=== PATIENT | male | born 1950 | race Caucasian/White ===

== ENCOUNTER 2021-12-08 22:10 | Inpatient (IN) | payer MEDICARE, BC ==
[~2021-12-08] VITALS: Ht 172.7 cm; Wt 75.1 kg
[2021-12-09] VITALS (8 sets, daily range): BP systolic 84–122; BP diastolic 41–59
[2021-12-09] MEDS ORDERED: magnesium 4gm in 100ml NS 100 ML IV PRN (01:00)
[2021-12-09] MEDS ORDERED: magnesium 2GM in 50ml NS 50 ML IV PRN (01:00)
[2021-12-09] MEDS ORDERED: magnesium Cl slow-release 64mg tablet PO PRN (01:00)
[2021-12-09] MEDS ORDERED: ondansetron 4mg rapidly disintigrating tab PO PRN (01:00)
[2021-12-09] MEDS ORDERED: mag hydrox/Alum hydrox/simeth 30ml oral suspension PO PRN (01:00)
[2021-12-09] MEDS ORDERED: ondansetron/PF 4mg/2ml inj IV PRN (01:00)
[2021-12-09] MEDS ORDERED: magnesium hydroxide 30ml (MOM) UD suspension PO PRN (01:00)
[2021-12-09] MEDS ORDERED: POTASSIUM BICARB 20meq eff tab 20 MEQ TABLET.EFF PO PRN ×2 (01:00)
[2021-12-09] MEDS ORDERED: potassium CL 10mEq/100ml bag 100 ML IV PRN (01:00)
[2021-12-09] MEDS: normal saline 1000ml 1,000 ML IV SCH ×2 (01:36→05:50)
[2021-12-09] MEDS ORDERED: NOVLG SQ (01:47)
[2021-12-09] MEDS ORDERED: AMYL1CAP57 PO (01:47)
[2021-12-09] MEDS ORDERED: SPIR25TA5 PO (01:47)
[2021-12-09] MEDS ORDERED: FURO40TA4 PO (01:47)
[2021-12-09] MEDS ORDERED: [UNRECOGNIZED DRUG - CODE] PO (01:47)
[2021-12-09] MEDS ORDERED: CLON0.2T PO (01:47)
[2021-12-09] MEDS ORDERED: INSU100V12 SQ (01:47)
[2021-12-09] MEDS ORDERED: DIPH-186 PO (01:47)
[2021-12-09] MEDS ORDERED: METO-292 PO (01:47)
[2021-12-09] MEDS ORDERED: APIX2.5T PO (01:47)
[2021-12-09] MEDS ORDERED: TRAM50TA2 PO (01:47)
[2021-12-09] MEDS ORDERED: NEBI20TA2 PO (01:47)
[2021-12-09] MEDS ORDERED: lactulose 20gm/30ml cup PO SCH (02:00)
[2021-12-09 02:31] LABS: CLARITY,URINE CLEAR (Clear); COLOR,URINE YELLOW (Yellow); GLUCOSE, URINE 250 mg/dl (Neg); KETONES,URINE NEGATIVE (Neg); LEUKOCYTE ESTERASE ,URINE NEGATIVE (Neg); NITRITES, URINE NEGATIVE (Neg); OCCULT BLOOD,URINE SMALL (Neg); PH,URINE 5.5 (4.8-8.0); PROTEIN,URINE TRACE mg/dl (Neg); UROBILINOGEN,URINE 0.2 E.U/dL (0.2-1.0)
[2021-12-09 02:33] LABS: BASOPHILS # (AUTO) 0.1 X10'3 (0-0.2); BASOPHILS % (AUTO) 1.3 % (0-1); EOSINOPHILS # (AUTO) 0.1 X10'3 (0-0.9); EOSINOPHILS % (AUTO) 1.1 % (0-6); HEMOGLOBIN 7.1 g/dl (14.0-17.9); LYMPHOCYTES # (AUTO) 0.5 X10'3 (1.1-4.8); LYMPHOCYTES % (AUTO) 6.5 % (21-51); MEAN CORPUSCULAR HEMOGLOBIN 30.4 PG (27.0-31.0); MEAN CORPUSCULAR HGB CONC 32.5 g/dL (33.0-36.5); MEAN CORPUSCULAR VOLUME 93.7 FL (78-98); MEAN PLATELET VOLUME 9.8 FL (7.4-10.4); MONOCYTES # (AUTO) 0.4 X10'3 (0-0.9); MONOCYTES % (AUTO) 5.3 % (2-12); NEUTROPHILS # (AUTO) 6.8 X10'3 (1.8-7.7); NEUTROPHILS % (AUTO) 85.8 % (42-75); PLATELET COUNT 115 X10'3 (140-440); RED BLOOD COUNT 2.34 X10'6 (4.70-6.10); RED CELL DISTRIBUTION WIDTH 17.8 % (11.5-14.5); WHITE BLOOD COUNT 7.9 X10'3 (4.5-11.0)
[2021-12-09 02:42] LABS: UA COLLECTION TYPE FOLEY CATH
[2021-12-09 02:43] LABS: BACTERIA,URINE NONE SEEN /HPF (Neg); RBC,URINE 0-2 /HPF (0-2); SQUAMOUS EPITHELIAL CELL,UR FEW /LPF (FEW); WBC,URINE 0-4 /HPF (0-4)
[2021-12-09 02:55] LABS: ALANINE AMINOTRANSFERASE 59 U/L (12-78); ALBUMIN/GLOBULIN RATIO 0.5 (1.1-1.5); ALKALINE PHOSPHATASE 405 IU/L (46-116); ANION GAP 16 (8-16); ASPARTATE AMINO TRANSFERASE 20 U/L (10-37); BILIRUBIN,TOTAL 0.7 MG/DL (0.1-1.0); BLOOD UREA NITROGEN 82 MG/DL (7-18); BUN/CREATININE RATIO 13.7 (5.4-32.0); CALCIUM 7.8 MG/DL (8.5-10.1); CHLORIDE 103 MMOL/L (99-107); GLUCOSE 326 MG/DL (70-104); MAGNESIUM 1.6 MG/DL (1.5-2.4); PHOSPHORUS 7.2 MG/DL (2.3-4.5); POTASSIUM 5.5 MMOL/L (3.5-5.1); SODIUM 133 MMOL/L (135-145); TOTAL PROTEIN 5.7 G/DL (6.4-8.2); eGFR 9 ML/MIN
[2021-12-09 03:02] LABS: APTT 35 SECONDS (22-32)
[2021-12-09] MEDS ORDERED: Lactulose Enema **for rectal use only RC PRN ×2 (05:25)
[2021-12-09] MEDS ORDERED: MESSAGE TO PHARMACY PO ONE (06:25)
[2021-12-09] MEDS ORDERED: DEXTROSE 15 GM of carb/4 tabs (each vial/BOTTLE has 4 tablets) PO PRN ×2 (06:25)
[2021-12-09] MEDS ORDERED: dextrose 50%-water 50ml dispensing syringe IV PRN ×2 (06:25)
[2021-12-09] MEDS ORDERED: glucagon, human recombinant 1mg kit SUBCUT PRN (06:25)
[2021-12-09] MEDS: sodium bicarbonate (8.4%) inj. 150 MEQ in sodium chloride 0.45% 1,000 ML IV SCH ×3 (06:37→21:57)
[2021-12-09 07:36] LABS: HEMOGLOBIN A1C 9.4 % (4.5-6.2)
[2021-12-09] MEDS ORDERED: K and/or MAG REPLACEMENT MC SCH (08:00)
[2021-12-09] MEDS: LIPASE/PROTEASE/AMYLASE 10,500 units CAPSULE.DR PO SCH ×3 (08:00→19:00)
[2021-12-09] MEDS: docusate sod 100mg capsule PO SCH ×2 (08:00→20:00)
[2021-12-09] MEDS: rifaximin 550mg tablet PO SCH ×2 (08:00→20:00)
[2021-12-09] MEDS ORDERED: heparin, porcine 5000 units/ml vial SQ SCH (08:00)
[2021-12-09] MEDS: cloNIDine 0.1 mg tablet PO SCH ×3 (08:58→21:00)
[2021-12-09] MEDS: apixaban 2.5mg tablet PO SCH ×2 (08:58→20:00)
[2021-12-09] MEDS: metoprolol tartrate 50mg tablet PO SCH ×2 (08:58→20:00)
[2021-12-09 09:51] LABS: BASOPHILS # (AUTO) 0.1 X10'3 (0-0.2); BASOPHILS % (AUTO) 1.2 % (0-1); EOSINOPHILS # (AUTO) 0.2 X10'3 (0-0.9); HEMATOCRIT 22.9 % (42.0-52.0); HEMOGLOBIN 7.4 g/dl (14.0-17.9); LYMPHOCYTES # (AUTO) 0.5 X10'3 (1.1-4.8); LYMPHOCYTES % (AUTO) 5.8 % (21-51); MEAN CORPUSCULAR HEMOGLOBIN 30.3 PG (27.0-31.0); MEAN CORPUSCULAR HGB CONC 32.3 g/dL (33.0-36.5); MEAN PLATELET VOLUME 9.8 FL (7.4-10.4); MONOCYTES # (AUTO) 0.5 X10'3 (0-0.9); MONOCYTES % (AUTO) 6.3 % (2-12); NEUTROPHILS # (AUTO) 7.1 X10'3 (1.8-7.7); NEUTROPHILS % (AUTO) 84.7 % (42-75); PLATELET COUNT 119 X10'3 (140-440); RED BLOOD COUNT 2.43 X10'6 (4.70-6.10); WHITE BLOOD COUNT 8.4 X10'3 (4.5-11.0)
[2021-12-09 10:23] LABS: ALANINE AMINOTRANSFERASE 58 U/L (12-78); ALBUMIN 2.1 G/DL (3.4-5.0); ALBUMIN/GLOBULIN RATIO 0.6 (1.1-1.5); ALKALINE PHOSPHATASE 418 IU/L (46-116); ANION GAP 18 (8-16); ASPARTATE AMINO TRANSFERASE 21 U/L (10-37); BILIRUBIN,TOTAL 0.8 MG/DL (0.1-1.0); BLOOD UREA NITROGEN 82 MG/DL (7-18); BUN/CREATININE RATIO 13.8 (5.4-32.0); CALCIUM 8.2 MG/DL (8.5-10.1); CHLORIDE 106 MMOL/L (99-107); CREATININE 5.93 MG/DL (0.60-1.10); GLUCOSE 215 MG/DL (70-104); SODIUM 137 MMOL/L (135-145); TOTAL PROTEIN 5.8 G/DL (6.4-8.2); eGFR 10 ML/MIN
[2021-12-09 10:29] LABS: TOTAL CARBON DIOXIDE 12.6 MMOL/L (24-32)
[2021-12-09] MEDS: Lactulose Enema **for rectal use only RC SCH ×6 (10:54→21:58)
[2021-12-09 16:45] LABS: CLARITY,URINE SLIGHTLY CLOUDY (Clear); COLOR,URINE YELLOW (Yellow); GLUCOSE, URINE NEGATIVE (Neg); KETONES,URINE NEGATIVE (Neg); LEUKOCYTE ESTERASE ,URINE MODERATE (Neg); NITRITES, URINE NEGATIVE (Neg); OCCULT BLOOD,URINE LARGE (Neg); PH,URINE 5.5 (4.8-8.0); PROTEIN,URINE TRACE mg/dl (Neg); UROBILINOGEN,URINE 0.2 E.U/dL (0.2-1.0)
[2021-12-09 16:46] LABS: UA COLLECTION TYPE NON-SPECIFIED
[2021-12-09 16:48] LABS: TOTAL PROTEIN,URINE RANDOM 44.6 MG/DL
[2021-12-09 16:50] LABS: ALBUMIN 1.8 G/DL (3.4-5.0); ANION GAP 16 (8-16); BLOOD UREA NITROGEN 80 MG/DL (7-18); BUN/CREATININE RATIO 13.7 (5.4-32.0); CALCIUM 7.7 MG/DL (8.5-10.1); CHLORIDE 107 MMOL/L (99-107); CREATININE 5.82 MG/DL (0.60-1.10); GLUCOSE 142 MG/DL (70-104); POTASSIUM 5.3 MMOL/L (3.5-5.1); SODIUM 139 MMOL/L (135-145); TOTAL CARBON DIOXIDE 16.4 MMOL/L (24-32); eGFR 10 ML/MIN
[2021-12-09 16:57] LABS: COARSE GRANULAR CAST 0-3 /LPF (NEGATIVE); SQUAMOUS EPITHELIAL CELL,UR FEW /LPF (FEW)
[2021-12-09 16:59] LABS: RBC,URINE 50-100 /HPF (0-2)
[2021-12-09 17:01] LABS: BACTERIA,URINE FEW /HPF (Neg); WBC CLUMPS,URINE FEW /HPF (NEGATIVE); WBC,URINE TNTC /HPF (0-4)
[2021-12-09 17:03] LABS: CAL OXALATE CRYSTALS FEW /HPF (NEGATIVE)
[2021-12-09 17:25] LABS: UA EOSINOPHILS RARE EOS /HPF
[2021-12-09] MEDS: CefTRIAXone/D5W-Rocephin 1gm 50 ML IV SCH (19:31)
[2021-12-09] MEDS: insulin glargine (Lantus) pen - multi-dose SQ SCH (22:19)
[2021-12-10] VITALS (10 sets, daily range): BP systolic 103–128; BP diastolic 45–62
[2021-12-10] MEDS ORDERED: morphine 4 MG/ML inj SYRINge IV PRN (02:10)
[2021-12-10] MEDS: morphine 2 MG/ML inj. syringe IV PRN ×2 (03:40→20:01)
[2021-12-10] MEDS: Lactulose Enema **for rectal use only RC SCH ×6 (04:05→14:36)
[2021-12-10 05:55] LABS: BASOPHILS # (AUTO) 0.1 X10'3 (0-0.2); BASOPHILS % (AUTO) 1.3 % (0-1); EOSINOPHILS # (AUTO) 0.2 X10'3 (0-0.9); EOSINOPHILS % (AUTO) 1.9 % (0-6); LYMPHOCYTES # (AUTO) 0.5 X10'3 (1.1-4.8); LYMPHOCYTES % (AUTO) 4.9 % (21-51); MEAN CORPUSCULAR HEMOGLOBIN 30.4 PG (27.0-31.0); MEAN CORPUSCULAR HGB CONC 32.9 g/dL (33.0-36.5); MEAN CORPUSCULAR VOLUME 92.4 FL (78-98); MEAN PLATELET VOLUME 9.9 FL (7.4-10.4); MONOCYTES # (AUTO) 0.5 X10'3 (0-0.9); MONOCYTES % (AUTO) 5.7 % (2-12); NEUTROPHILS # (AUTO) 8.2 X10'3 (1.8-7.7); NEUTROPHILS % (AUTO) 86.2 % (42-75); PLATELET COUNT 119 X10'3 (140-440); RED BLOOD COUNT 2.27 X10'6 (4.70-6.10); RED CELL DISTRIBUTION WIDTH 17.6 % (11.5-14.5); WHITE BLOOD COUNT 9.5 X10'3 (4.5-11.0)
[2021-12-10 06:03] LABS: HEMOGLOBIN 6.9 g/dl (14.0-17.9)
[2021-12-10 06:15] LABS: ALANINE AMINOTRANSFERASE 47 U/L (12-78); ALBUMIN 1.9 G/DL (3.4-5.0); ALBUMIN/GLOBULIN RATIO 0.6 (1.1-1.5); ALKALINE PHOSPHATASE 362 IU/L (46-116); ANION GAP 17 (8-16); ASPARTATE AMINO TRANSFERASE 27 U/L (10-37); BILIRUBIN,TOTAL 0.7 MG/DL (0.1-1.0); BLOOD UREA NITROGEN 86 MG/DL (7-18); BUN/CREATININE RATIO 14.7 (5.4-32.0); CALCIUM 7.8 MG/DL (8.5-10.1); CHLORIDE 109 MMOL/L (99-107); CREATININE 5.85 MG/DL (0.60-1.10); GLUCOSE 76 MG/DL (70-104); PHOSPHORUS 7.5 MG/DL (2.3-4.5); POTASSIUM 4.9 MMOL/L (3.5-5.1); SODIUM 142 MMOL/L (135-145); TOTAL CARBON DIOXIDE 15.8 MMOL/L (24-32); TOTAL PROTEIN 5.3 G/DL (6.4-8.2); eGFR 10 ML/MIN
[2021-12-10 06:39] LABS: APTT 38 SECONDS (22-32)
[2021-12-10] MEDS: rifaximin 550mg tablet PO SCH ×2 (08:00→19:59)
[2021-12-10] MEDS: cloNIDine 0.1 mg tablet PO SCH ×3 (08:00→20:00)
[2021-12-10] MEDS: metoprolol tartrate 50mg tablet PO SCH ×2 (08:00→20:00)
[2021-12-10] MEDS: docusate sod 100mg capsule PO SCH ×2 (08:00→19:59)
[2021-12-10] MEDS: LIPASE/PROTEASE/AMYLASE 10,500 units CAPSULE.DR PO SCH ×3 (08:00→17:41)
[2021-12-10] MEDS ORDERED: sodium bicarbonate (8.4%) inj. 50 MEQ in dextrose 5%-water 1,000 ML IV SCH (09:05)
[2021-12-10] MEDS: apixaban 2.5mg tablet PO SCH ×2 (10:15→19:59)
[2021-12-10] MEDS: CefTRIAXone/D5W-Rocephin 1gm 50 ML IV SCH (10:15)
[2021-12-10] MEDS: DEXTROSE 5% IV SCH (12:46)
[2021-12-10] MEDS: NORMAL SALINE IV SCH (12:46)
[2021-12-10] MEDS: SODIUM BICARBONATE IV SCH (12:46)
[2021-12-10] MEDS: insulin glargine (Lantus) pen - multi-dose SQ SCH ×2 (19:12→23:03)
[2021-12-11] MEDS: DEXTROSE 5% IV SCH (01:32)
[2021-12-11] MEDS: NORMAL SALINE IV SCH (01:32)
[2021-12-11] MEDS: SODIUM BICARBONATE IV SCH (01:32)
[2021-12-11] MEDS: lactulose 20gm/30ml cup PO SCH ×4 (01:33→19:29)
[2021-12-11 01:57] VITALS: BP 111/45
[2021-12-11 05:51] LABS: BASOPHILS # (AUTO) 0.1 X10'3 (0-0.2); BASOPHILS % (AUTO) 1.3 % (0-1); EOSINOPHILS # (AUTO) 0.3 X10'3 (0-0.9); EOSINOPHILS % (AUTO) 3.2 % (0-6); HEMATOCRIT 23.7 % (42.0-52.0); LYMPHOCYTES # (AUTO) 0.4 X10'3 (1.1-4.8); LYMPHOCYTES % (AUTO) 5.2 % (21-51); MEAN CORPUSCULAR HEMOGLOBIN 30.6 PG (27.0-31.0); MEAN CORPUSCULAR HGB CONC 33.7 g/dL (33.0-36.5); MEAN CORPUSCULAR VOLUME 90.7 FL (78-98); MEAN PLATELET VOLUME 10.1 FL (7.4-10.4); MONOCYTES # (AUTO) 0.5 X10'3 (0-0.9); MONOCYTES % (AUTO) 6.7 % (2-12); NEUTROPHILS # (AUTO) 6.8 X10'3 (1.8-7.7); NEUTROPHILS % (AUTO) 83.6 % (42-75); PLATELET COUNT 115 X10'3 (140-440); RED BLOOD COUNT 2.61 X10'6 (4.70-6.10); RED CELL DISTRIBUTION WIDTH 17.8 % (11.5-14.5); WHITE BLOOD COUNT 8.2 X10'3 (4.5-11.0)
[2021-12-11 05:57] LABS: APTT 41 SECONDS (22-32)
[2021-12-11 06:00] VITALS: BP 126/63
[2021-12-11 06:06] LABS: ALANINE AMINOTRANSFERASE 44 U/L (12-78); ALBUMIN 1.7 G/DL (3.4-5.0); ALBUMIN/GLOBULIN RATIO 0.5 (1.1-1.5); ALKALINE PHOSPHATASE 363 IU/L (46-116); ANION GAP 14 (8-16); ASPARTATE AMINO TRANSFERASE 22 U/L (10-37); BILIRUBIN,TOTAL 0.7 MG/DL (0.1-1.0); BLOOD UREA NITROGEN 84 MG/DL (7-18); CALCIUM 7.8 MG/DL (8.5-10.1); CHLORIDE 107 MMOL/L (99-107); CREATININE 6.02 MG/DL (0.60-1.10); GLUCOSE 258 MG/DL (70-104); PHOSPHORUS 7.8 MG/DL (2.3-4.5); POTASSIUM 4.7 MMOL/L (3.5-5.1); SODIUM 142 MMOL/L (135-145); TOTAL CARBON DIOXIDE 21.4 MMOL/L (24-32); TOTAL PROTEIN 5.4 G/DL (6.4-8.2); eGFR 9 ML/MIN
[2021-12-11] MEDS: docusate sod 100mg capsule PO SCH ×2 (08:00→19:29)
[2021-12-11] MEDS: CefTRIAXone/D5W-Rocephin 1gm 50 ML IV SCH (09:52)
[2021-12-11] MEDS: apixaban 2.5mg tablet PO SCH ×2 (09:57→19:25)
[2021-12-11] MEDS: rifaximin 550mg tablet PO SCH ×2 (09:57→19:25)
[2021-12-11] MEDS: LIPASE/PROTEASE/AMYLASE 10,500 units CAPSULE.DR PO SCH ×3 (09:58→17:51)
[2021-12-11] MEDS: cloNIDine 0.1 mg tablet PO SCH ×3 (10:00→21:56)
[2021-12-11] MEDS: insulin Lispro (HumaLOG) vial - multi-dose SQ SCH ×3 (10:13→19:23)
[2021-12-11] MEDS: metoprolol tartrate 50mg tablet PO SCH ×2 (10:27→19:28)
[2021-12-11 11:00] VITALS: BP 123/61
[2021-12-11] MEDS ORDERED: sodium bicarbonate (8.4%) inj. 150 MEQ in sodium chloride 0.45% 1,000 ML IV SCH (11:50)
[2021-12-11] MEDS: sodium bicarbonate (8.4%) inj. 150 MEQ in water for injection, sterile 1,000 ML IV SCH ×2 (13:03→23:33)
[2021-12-11] MEDS: morphine 2 MG/ML inj. syringe IV PRN ×2 (14:18→20:13)
[2021-12-11 14:26] VITALS: BP 112/63
[2021-12-11 18:00] VITALS: BP 102/53
[2021-12-11] MEDS: insulin glargine (Lantus) pen - multi-dose SQ SCH (21:53)
[2021-12-11 22:00] VITALS: BP 112/62
[2021-12-12 02:00] VITALS: BP 107/58
[2021-12-12] MEDS: lactulose 20gm/30ml cup PO SCH ×4 (02:00→20:17)
[2021-12-12] MEDS: morphine 2 MG/ML inj. syringe IV PRN (02:11)
[2021-12-12] MEDS: sodium bicarbonate (8.4%) inj. 150 MEQ in water for injection, sterile 1,000 ML IV SCH ×2 (02:33→21:37)
[2021-12-12 05:55] LABS: BASOPHILS # (AUTO) 0.1 X10'3 (0-0.2); EOSINOPHILS # (AUTO) 0.4 X10'3 (0-0.9); HEMATOCRIT 23.6 % (42.0-52.0); HEMOGLOBIN 7.9 g/dl (14.0-17.9); LYMPHOCYTES # (AUTO) 0.5 X10'3 (1.1-4.8); LYMPHOCYTES % (AUTO) 6.1 % (21-51); MEAN CORPUSCULAR HEMOGLOBIN 30.1 PG (27.0-31.0); MEAN CORPUSCULAR HGB CONC 33.4 g/dL (33.0-36.5); MEAN CORPUSCULAR VOLUME 90.1 FL (78-98); MEAN PLATELET VOLUME 9.9 FL (7.4-10.4); MONOCYTES # (AUTO) 0.7 X10'3 (0-0.9); MONOCYTES % (AUTO) 8.2 % (2-12); NEUTROPHILS # (AUTO) 6.7 X10'3 (1.8-7.7); NEUTROPHILS % (AUTO) 79.7 % (42-75); PLATELET COUNT 131 X10'3 (140-440); RED BLOOD COUNT 2.63 X10'6 (4.70-6.10); RED CELL DISTRIBUTION WIDTH 17.3 % (11.5-14.5); WHITE BLOOD COUNT 8.4 X10'3 (4.5-11.0)
[2021-12-12 06:01] LABS: APTT 39 SECONDS (22-32)
[2021-12-12 06:13] LABS: ALANINE AMINOTRANSFERASE 40 U/L (12-78); ALBUMIN 1.7 G/DL (3.4-5.0); ALBUMIN/GLOBULIN RATIO 0.5 (1.1-1.5); ALKALINE PHOSPHATASE 414 IU/L (46-116); ANION GAP 10 (8-16); ASPARTATE AMINO TRANSFERASE 31 U/L (10-37); BILIRUBIN,TOTAL 0.8 MG/DL (0.1-1.0); BLOOD UREA NITROGEN 79 MG/DL (7-18); BUN/CREATININE RATIO 14.4 (5.4-32.0); CALCIUM 7.4 MG/DL (8.5-10.1); CHLORIDE 109 MMOL/L (99-107); CREATININE 5.49 MG/DL (0.60-1.10); PHOSPHORUS 6.8 MG/DL (2.3-4.5); POTASSIUM 3.8 MMOL/L (3.5-5.1); SODIUM 144 MMOL/L (135-145); TOTAL CARBON DIOXIDE 25.4 MMOL/L (24-32); TOTAL PROTEIN 5.1 G/DL (6.4-8.2); eGFR 10 ML/MIN
[2021-12-12 06:36] LABS: GLUCOSE 41 MG/DL (70-104)
[2021-12-12] MEDS: docusate sod 100mg capsule PO SCH ×2 (08:00→20:00)
[2021-12-12] MEDS: rifaximin 550mg tablet PO SCH ×2 (08:04→20:17)
[2021-12-12] MEDS: cloNIDine 0.1 mg tablet PO SCH ×3 (08:04→20:18)
[2021-12-12] MEDS: metoprolol tartrate 50mg tablet PO SCH (08:05)
[2021-12-12] MEDS: apixaban 2.5mg tablet PO SCH ×2 (08:05→20:17)
[2021-12-12] MEDS: LIPASE/PROTEASE/AMYLASE 10,500 units CAPSULE.DR PO SCH ×3 (08:06→20:17)
[2021-12-12] MEDS: CefTRIAXone/D5W-Rocephin 1gm 50 ML IV SCH (08:17)
[2021-12-12 10:29] VITALS: BP 111/57
[2021-12-12 18:00] VITALS: BP 115/60
[2021-12-12] MEDS: insulin glargine (Lantus) pen - multi-dose SQ SCH (20:39)
[2021-12-12 22:00] VITALS: BP 119/58
[2021-12-13 02:00] VITALS: BP 108/61
[2021-12-13] MEDS: lactulose 20gm/30ml cup PO SCH ×4 (02:04→19:09)
[2021-12-13 06:00] VITALS: BP 115/63
[2021-12-13 06:30] LABS: BASOPHILS # (AUTO) 0.1 X10'3 (0-0.2); BASOPHILS % (AUTO) 1.1 % (0-1); EOSINOPHILS # (AUTO) 0.4 X10'3 (0-0.9); EOSINOPHILS % (AUTO) 5.8 % (0-6); HEMOGLOBIN 7.8 g/dl (14.0-17.9); LYMPHOCYTES # (AUTO) 0.5 X10'3 (1.1-4.8); LYMPHOCYTES % (AUTO) 7.4 % (21-51); MEAN CORPUSCULAR HEMOGLOBIN 30.4 PG (27.0-31.0); MEAN CORPUSCULAR HGB CONC 33.7 g/dL (33.0-36.5); MEAN CORPUSCULAR VOLUME 90.1 FL (78-98); MEAN PLATELET VOLUME 9.2 FL (7.4-10.4); MONOCYTES # (AUTO) 0.5 X10'3 (0-0.9); MONOCYTES % (AUTO) 7.3 % (2-12); NEUTROPHILS % (AUTO) 78.4 % (42-75); PLATELET COUNT 109 X10'3 (140-440); RED BLOOD COUNT 2.56 X10'6 (4.70-6.10); RED CELL DISTRIBUTION WIDTH 16.8 % (11.5-14.5); WHITE BLOOD COUNT 6.4 X10'3 (4.5-11.0)
[2021-12-13 06:31] LABS: ALANINE AMINOTRANSFERASE 52 U/L (12-78); ALBUMIN 1.6 G/DL (3.4-5.0); ALBUMIN/GLOBULIN RATIO 0.5 (1.1-1.5); ALKALINE PHOSPHATASE 525 IU/L (46-116); ANION GAP 10 (8-16); ASPARTATE AMINO TRANSFERASE 39 U/L (10-37); BILIRUBIN,TOTAL 0.6 MG/DL (0.1-1.0); BLOOD UREA NITROGEN 70 MG/DL (7-18); BUN/CREATININE RATIO 13.1 (5.4-32.0); CALCIUM 7.4 MG/DL (8.5-10.1); CHLORIDE 100 MMOL/L (99-107); CREATININE 5.35 MG/DL (0.60-1.10); GLUCOSE 172 MG/DL (70-104); PHOSPHORUS 6.7 MG/DL (2.3-4.5); POTASSIUM 4.1 MMOL/L (3.5-5.1); SODIUM 138 MMOL/L (135-145); TOTAL CARBON DIOXIDE 28.3 MMOL/L (24-32); TOTAL PROTEIN 5.1 G/DL (6.4-8.2); eGFR 11 ML/MIN
[2021-12-13] MEDS: docusate sod 100mg capsule PO SCH ×2 (08:00→19:09)
[2021-12-13] MEDS: rifaximin 550mg tablet PO SCH ×2 (08:52→19:08)
[2021-12-13] MEDS: CefTRIAXone/D5W-Rocephin 1gm 50 ML IV SCH (08:52)
[2021-12-13] MEDS: LIPASE/PROTEASE/AMYLASE 10,500 units CAPSULE.DR PO SCH ×3 (08:52→19:08)
[2021-12-13] MEDS: apixaban 2.5mg tablet PO SCH ×2 (08:52→19:08)
[2021-12-13] MEDS: cloNIDine 0.1 mg tablet PO SCH ×2 (08:53→13:25)
[2021-12-13] MEDS: sodium bicarbonate (8.4%) inj. 150 MEQ in water for injection, sterile 1,000 ML IV SCH (10:03)
[2021-12-13] MEDS: insulin Lispro (HumaLOG) vial - multi-dose SQ SCH ×2 (13:18→21:23)
[2021-12-13 18:00] VITALS: BP 120/65
[2021-12-13] MEDS: normal saline 1000ml 1,000 ML IV SCH (19:02)
[2021-12-13] MEDS: insulin glargine (Lantus) pen - multi-dose SQ SCH (21:25)
[2021-12-13 22:00] VITALS: BP 131/72
[2021-12-14] MEDS: normal saline 1000ml 1,000 ML IV SCH ×2 (00:26→09:37)
[2021-12-14] MEDS: lactulose 20gm/30ml cup PO SCH ×2 (01:02→09:36)
[2021-12-14 02:00] VITALS: BP 142/73
[2021-12-14] MEDS: docusate sod 100mg capsule PO SCH (08:00)
[2021-12-14 08:06] LABS: BASOPHILS # (AUTO) 0.1 X10'3 (0-0.2); EOSINOPHILS # (AUTO) 0.4 X10'3 (0-0.9); EOSINOPHILS % (AUTO) 6.1 % (0-6); HEMATOCRIT 25.3 % (42.0-52.0); HEMOGLOBIN 8.3 g/dl (14.0-17.9); LYMPHOCYTES # (AUTO) 0.5 X10'3 (1.1-4.8); LYMPHOCYTES % (AUTO) 9.3 % (21-51); MEAN CORPUSCULAR HEMOGLOBIN 30.2 PG (27.0-31.0); MEAN CORPUSCULAR HGB CONC 32.9 g/dL (33.0-36.5); MEAN CORPUSCULAR VOLUME 91.6 FL (78-98); MEAN PLATELET VOLUME 9.5 FL (7.4-10.4); MONOCYTES # (AUTO) 0.4 X10'3 (0-0.9); MONOCYTES % (AUTO) 7.7 % (2-12); NEUTROPHILS # (AUTO) 4.4 X10'3 (1.8-7.7); NEUTROPHILS % (AUTO) 75.9 % (42-75); PLATELET COUNT 119 X10'3 (140-440); RED BLOOD COUNT 2.76 X10'6 (4.70-6.10); RED CELL DISTRIBUTION WIDTH 17.3 % (11.5-14.5); WHITE BLOOD COUNT 5.8 X10'3 (4.5-11.0)
[2021-12-14 08:37] LABS: ALANINE AMINOTRANSFERASE 47 U/L (12-78); ALBUMIN 1.7 G/DL (3.4-5.0); ALBUMIN/GLOBULIN RATIO 0.5 (1.1-1.5); ALKALINE PHOSPHATASE 536 IU/L (46-116); ANION GAP 12 (8-16); ASPARTATE AMINO TRANSFERASE 35 U/L (10-37); BILIRUBIN,TOTAL 0.6 MG/DL (0.1-1.0); BLOOD UREA NITROGEN 69 MG/DL (7-18); BUN/CREATININE RATIO 13.3 (5.4-32.0); CALCIUM 7.2 MG/DL (8.5-10.1); CHLORIDE 104 MMOL/L (99-107); GLUCOSE 82 MG/DL (70-104); PHOSPHORUS 6.7 MG/DL (2.3-4.5); POTASSIUM 3.8 MMOL/L (3.5-5.1); SODIUM 142 MMOL/L (135-145); TOTAL CARBON DIOXIDE 25.7 MMOL/L (24-32); TOTAL PROTEIN 5.3 G/DL (6.4-8.2); eGFR 11 ML/MIN
[2021-12-14] MEDS: rifaximin 550mg tablet PO SCH (09:36)
[2021-12-14] MEDS: apixaban 2.5mg tablet PO SCH (09:36)
[2021-12-14] MEDS: LIPASE/PROTEASE/AMYLASE 10,500 units CAPSULE.DR PO SCH (09:36)
[2021-12-14] MEDS ORDERED: LACT10SO32 PO (12:03)
== END 2021-12-14 15:02 | disposition home or self-care (01) | DRG 441 ==
LOC: PCU 3S 22:10 → UNDOADMIN 22:10 → PCU 3S 12-09 00:42
PROVIDERS: ADMIT Family Medicine; ATTEND Internal Medicine
PROC: 30233N1 Transfusion of Nonautologous Red Blood Cells into Peripheral Vein, Percutaneous Approach (ICD-10-PCS; principal; 2021-12-10)
PROC: 05HP33Z Insertion of Infusion Device into Right External Jugular Vein, Percutaneous Approach (ICD-10-PCS; 2021-12-10)
DX: K72.90 Hepatic failure, unspecified without coma (principal); G93.41 Metabolic encephalopathy; N17.0 Acute kidney failure with tubular necrosis; C25.9 Malignant neoplasm of pancreas, unspecified; E87.2 Acidosis; I12.0 Hypertensive chronic kidney disease with stage 5 chronic kidney disease or end stage renal disease; N18.5 Chronic kidney disease, stage 5; E72.20 Disorder of urea cycle metabolism, unspecified; D63.8 Anemia in other chronic diseases classified elsewhere; E86.0 Dehydration; K74.60 Unspecified cirrhosis of liver; K52.9 Noninfective gastroenteritis and colitis, unspecified; R00.1 Bradycardia, unspecified; E87.5 Hyperkalemia; E11.22 Type 2 diabetes mellitus with diabetic chronic kidney disease; E83.39 Other disorders of phosphorus metabolism; Z79.01 Long term (current) use of anticoagulants; Z79.4 Long term (current) use of insulin; Z86.718 Personal history of other venous thrombosis and embolism; Z79.899 Other long term (current) drug therapy
CPT/HCPCS: 36415; 36430; 76700; 76770; 80048; 80053; 81001; 82140; 82570; 82948; 83036; 83605; 83735; 84100; 84145; 84156; 84300; 85025; 85610; 85730; 86885; 86900; 86901; 86922; 87040; 87081; 87207; 97116; 97161; 97530; A6250; A6258; A6449; G0378; J0696; J1815; J2270; J3490; J7030; J7040; J7042; P9016